=== PATIENT | female | born 1975 | race Caucasian/White ===

== ENCOUNTER 2022-10-27 15:56 | Emergency (ER) | payer MEDICAID, SELFPAY ==
[2022-10-27] VITALS (24 sets, daily range): BP systolic 105–158; BP diastolic 57–80; PULSE 45–70; RESP 16–25; TEMP 36.2–36.6; O2SAT 94–100
--- NOTE | 2022-10-27 16:17 | W.ED.GENAD ---
Discharge Plan Disposition Patient Disposition: Transfer-Acute Inpatient Care Specific Acute Inpt Facility: Other Condition: Stable Discharge Details Clinical Impression: Chest pain, Piyush-Danlos syndrome, Elevated troponin, History of aortic dissection Primary Care Provider: Unknown,Unknown ED Provider: Claudia Elise Home Meds and New Rx's Prescriptions: No Action lorazepam 0.5 mg Tablet 0.5 mg PO TID PRN metoprolol succinate 25 mg Tablet Extended Release 24 Hr PO BID Discharge Data Discharge Date/Time-TO BE ENTERED AT DEPARTURE: 10/28/22 04:16 Medical Decision Making <Landon Holbrook NP - Last Filed: 10/30/22 11:04> 1612- Patient presenting to the emergency department for chief complaint of abdominal pain nausea vomiting diarrhea. I attempted to see patient in the room but she was on the phone and didn't alter my presence after appropriate introduction. Patient continued to speak on the phone and did not seem to be in acute distress. Inform nursing staff due to high capacity and multiple patients waiting longer to have patient wait in the waiting room as it did not appear that she had any life threat needing emergency that could not wait given that she did not want to be seen at time of initial assessment. We will continue to monitor patient's condition and assess her when timing capacity is more appropriate. Once patient was moved to a room was able to finally see patient. She states nausea vomiting and diarrhea with some chills that started around noon today. She does states she had a headache earlier this morning that was typical of her migrainous type headaches. Patient denies any chest pain or shortness of breath. Does state history of migraine headaches, dissection(?) and Piyush-Danlos syndrome. Physical exam shows normal cardiac and respiratory exam, tenderness diffusely throughout the abdomen but mostly central but patient is writhing around in pain making it difficult to perform an appropriate exam. Exam is otherwise unremarkable. We will plan on checking patient's labs and CT imaging of the abdomen. Pending results we will give patient antiemetic fluids and small dose of ketorolac given that she states she does not want any narcotic medications. Review of labs patient does have significant leukocytosis with white count of 19.54, neutrophils of 17.41, and low lymphocytes at 1.17. Cbc is otherwise unremarkable. CMP reviewed and shows significant elevated anion gap of 13.7 so we will give an additional liter of fluids, glucose is 152, mag slightly low at 1.7. Patient has negative lipase. Urine does have blood and ketones present but otherwise no signs of infection. Did perform UDS which was only positive for THC. Viral pathogen panel showed negative for COVID flu and RSV. Did review CT imaging and radiologist interpretation that showed mild thickening of the proximal to mid jejunum suggesting enteritis and some small amount of free fluid in the pelvic cul-de-sac with a very minor left ovarian cyst noted. Reassessed patient and she does state history of ovarian cyst but states this feels different. She did state that now she has having significant amount of chest pain and discomfort. Patient stated that she was more focused on her nausea when she got here even though she initially denied chest pain. Discussed with patient risk versus benefit of reimaging her chest given her history of dissection along with additional radiation exposure and contrast but given her history I do feel this is needed given that now she is still stating significant amount of pain and discomfort. Patient is agreeable to further imaging. We will also add on additional troponin and perform EKG. We will treat patient's pain with acetaminophen again due to her not wanting any narcotic medications. Reviewed CTA imaging and no signs of dissection and scan is otherwise unremarkable except for previously noted enteritis. Reassessed patient and patient continuing to endorse pain and states it feels like an elephant is sitting on her chest. Did asked patient about any stimulants or cocaine use which she denies both. We will give patient small amount of lorazepam, nitro, and aspirin. She does state this is somewhat similar to when she had a dissection in the past but I reassured her that her scan at this time is negative. We will continue to monitor with repeat Trope and EKG. Imaging Data Radiologic Study: Imaging: CT Scan Radiologist's impression: Exam: CT Abdomen And Pelvis With Contrast Exam date and time: 10/27/2022 6:14 PM Age: 47 years old Clinical indication: Other: Abdominal pain nausea vomiting TECHNIQUE: Imaging protocol: Computed tomography of the abdomen and pelvis with contrast. Contrast material: OMNIPAQUE 350; Contrast volume: 70 ml; Contrast route: INTRAVENOUS (IV); COMPARISON: No relevant prior studies available. FINDINGS: Lungs: Lung bases are clear. Pleural spaces: No pleural effusion. Heart: Normal heart size. No pericardial effusion. No coronary artery atherosclerotic calcium visible. Liver: The liver is normal in size, contour and attenuation. Gallbladder and bile ducts: Normal. No calcified stones. No ductal dilation. Pancreas: Normal. No ductal dilation. Spleen: The spleen is normal in size, contour and attenuation. Adrenal glands: The adrenal glands are normal in size and contour bilaterally. Kidneys and ureters: The kidneys bilaterally are unremarkable. Normal attenutation. No hydronephrosis. No calculi. Stomach and bowel: Gastric morphology is unremarkable. No edema. No gastric outlet obstruction. Small bowel loops with some features of wall thickening in the proximal to mid jejunum. Maximal wall thickness of approximately 10 mm. See series 4, image 38. This suggests an enteritis type process. There is no pneumatosis intestinalis. No distinct masslike changes. No obstructive features. Large bowel without acute disease. No edema. There is moderate formed feces throughout the colon. Appendix: Surgical clips at the cecum suggesting a previous appendectomy. Intraperitoneal space: Minor free fluid in the pelvic cul-de-sac with nonspecific appearance. This could be physiologic and gynecologic in nature. Vasculature: Unremarkable. No abdominal aortic aneurysm. Lymph nodes: Unremarkable. No enlarged lymph nodes. Urinary bladder: Urinary bladder is unremarkable in appearance. No wall thickening. No intravesicular calculi. No intravesicular gas. Reproductive: The uterus and adnexa are unremarkable in appearance. There are no dominant adnexal cysts or masslike features. A small cyst of the left ovary with nonspecific appearance is noted measuring approximally 14 x 10 mm. Series 4, image 57. There are no inflammatory features. No uterine mass evident. Bones/joints: Lower thoracic and lumbar spine are unremarkable. No acute features. Soft tissues: Unremarkable. IMPRESSION: 1. Mild wall thickening of the proximal to mid jejunum suggesting an enteritis type process. No mechanical obstruction. 2. Minor free fluid in the pelvic cul-de-sac is likely physiologic in nature and related to gynecologic processes. A minor nonspecific left ovarian cyst is noted measuring 14 x 10 mm. <Claudia Elise DO - Last Filed: 10/29/22 06:06> 1612- Patient presenting to the emergency department for chief complaint of abdominal pain nausea vomiting diarrhea. I attempted to see patient in the room but she was on the phone and didn't alter my presence after appropriate introduction. Patient continued to speak on the phone and did not seem to be in acute distress. Inform nursing staff due to high capacity and multiple patients waiting longer to have patient wait in the waiting room as it did not appear that she had any life threat needing emergency that could not wait given that she did not want to be seen at time of initial assessment. We will continue to monitor patient's condition and assess her when timing capacity is more appropriate. Once patient was moved to a room was able to finally see patient. She states nausea vomiting and diarrhea with some chills that started around noon today. She does states she had a headache earlier this morning that was typical of her migrainous type headaches. Patient denies any chest pain or shortness of breath. Does state history of migraine headaches, dissection(?) and Piyush-Danlos syndrome. Physical exam shows normal cardiac and respiratory exam, tenderness diffusely throughout the abdomen but mostly central but patient is writhing around in pain making it difficult to perform an appropriate exam. Exam is otherwise unremarkable. We will plan on checking patient's labs and CT imaging of the abdomen. Pending results we will give patient antiemetic fluids and small dose of ketorolac given that she states she does not want any narcotic medications. Review of labs patient does have significant leukocytosis with white count of 19.54, neutrophils of 17.41, and low lymphocytes at 1.17. Cbc is otherwise unremarkable. CMP reviewed and shows significant elevated anion gap of 13.7 so we will give an additional liter of fluids, glucose is 152, mag slightly low at 1.7. Patient has negative lipase. Urine does have blood and ketones present but otherwise no signs of infection. Did perform UDS which was only positive for THC. Viral pathogen panel showed negative for COVID flu and RSV. Did review CT imaging and radiologist interpretation that showed mild thickening of the proximal to mid jejunum suggesting enteritis and some small amount of free fluid in the pelvic cul-de-sac with a very minor left ovarian cyst noted. Reassessed patient and she does state history of ovarian cyst but states this feels different. She did state that now she has having significant amount of chest pain and discomfort. Patient stated that she was more focused on her nausea when she got here even though she initially denied chest pain. Discussed with patient risk versus benefit of reimaging her chest given her history of dissection along with additional radiation exposure and contrast but given her history I do feel this is needed given that now she is still stating significant amount of pain and discomfort. Patient is agreeable to further imaging. We will also add on additional troponin and perform EKG. We will treat patient's pain with acetaminophen again due to her not wanting any narcotic medications. Reviewed CTA imaging and no signs of dissection and scan is otherwise unremarkable except for previously noted enteritis. Reassessed patient and patient continuing to endorse pain and states it feels like an elephant is sitting on her chest. Did asked patient about any stimulants or cocaine use which she denies both. We will give patient small amount of lorazepam, nitro, and aspirin. She does state this is somewhat similar to when she had a dissection in the past but I reassured her that her scan at this time is negative. We will continue to monitor with repeat Trope and EKG. Dr. Elise 0261 --please see Demetri Holbrook's note for initial presentation, exam and plan. Case endorsed to follow-up with [facility] cardiology regarding recommendations of elevated troponin. 0030 --discussed with [facility] cardiology --considering patient's history of Piyush-Danlos, have to consider scad which is spontaneous coronary artery dissection even though she has a negative CT scan. Her symptoms could be consistent with viral gastroenteritis however recommend transfer to tertiary facility for coronary catheterization. [facility] has no capacity to do this. We will contact other facilities. No recommendations for heparin at this time. 0200 --no bed availability at [facility], [facility], [place], [facility], [facility] and no availability. Discussed with [facility] in [facility] and they may have availability tomorrow afternoon. Discussed with child caregiver private home Dr. Youngblood who has accepted patient for transfer but recommends that [facility] call the [facility] transfer center after 9 AM tomorrow to confirm bed availability and to give any updates. Dr. Youngblood does not recommend heparin treatment at this time. A repeat troponin just resulted and has doubled now 453. Discussed again with [facility] and they make no acute recommendations or no change in urgency. We will call other [facility] to see if they can take her sooner. 0220 --patient noted to be hypotensive with blood pressure 83/53. She endorses her chest pain is improved. We will give a normal saline bolus. She states she had an aortic dissection in April or May for which she was seen at [facility] and was treated nonoperatively. Case discussed with [facility] and they have accepted her for transfer -- accepting physician Dr. Horton. 0330 -- BP improving 101/53. Pt appears comfortable. After multiple attempts to secure transport, able to confirm with [facility] and they will transfer patient. No air transport available secondary to weather. [facility] and [facility] ground unavailable. Medical Records Medical records reviewed: Yes I reviewed the patient's medical records. Imaging Data Radiologic Study: Radiologist's impression: CT Abdomen And Pelvis With Contrast Exam date and time: 10/27/2022 6:14 PM Age: 47 years old Clinical indication: Other: Abdominal pain nausea vomiting TECHNIQUE: Imaging protocol: Computed tomography of the abdomen and pelvis with contrast. Contrast material: OMNIPAQUE 350; Contrast volume: 70 ml; Contrast route: INTRAVENOUS (IV); COMPARISON: No relevant prior studies available. FINDINGS: Lungs: Lung bases are clear. Pleural spaces: No pleural effusion. Heart: Normal heart size. No pericardial effusion. No coronary artery atherosclerotic calcium visible. Liver: The liver is normal in size, contour and attenuation. Gallbladder and bile ducts: Normal. No calcified stones. No ductal dilation. Pancreas: Normal. No ductal dilation. Spleen: The spleen is normal in size, contour and attenuation. Adrenal glands: The adrenal glands are normal in size and contour bilaterally. Kidneys and ureters: The kidneys bilaterally are unremarkable. Normal attenutation. No hydronephrosis. No calculi. Stomach and bowel: Gastric morphology is unremarkable. No edema. No gastric outlet obstruction. Small bowel loops with some features of wall thickening in the proximal to mid jejunum. Maximal wall thickness of approximately 10 mm. See series 4, image 38. This suggests an enteritis type process. There is no pneumatosis intestinalis. No distinct masslike changes. No obstructive features. Large bowel without acute disease. No edema. There is moderate formed feces throughout the colon. Appendix: Surgical clips at the cecum suggesting a previous appendectomy. Intraperitoneal space: Minor free fluid in the pelvic cul-de-sac with nonspecific appearance. This could be physiologic and gynecologic in nature. Vasculature: Unremarkable. No abdominal aortic aneurysm. Lymph nodes: Unremarkable. No enlarged lymph nodes. Urinary bladder: Urinary bladder is unremarkable in appearance. No wall thickening. No intravesicular calculi. No intravesicular gas. Reproductive: The uterus and adnexa are unremarkable in appearance. There are no dominant adnexal cysts or masslike features. A small cyst of the left ovary with nonspecific appearance is noted measuring approximally 14 x 10 mm. Series 4, image 57. There are no inflammatory features. No uterine mass evident. Bones/joints: Lower thoracic and lumbar spine are unremarkable. No acute features. Soft tissues: Unremarkable. IMPRESSION: 1. Mild wall thickening of the proximal to mid jejunum suggesting an enteritis type process. No mechanical obstruction. 2. Minor free fluid in the pelvic cul-de-sac is likely physiologic in nature and related to gynecologic processes. A minor nonspecific left ovarian cyst is noted measuring 14 x 10 mm. CTA Chest With Contrast CTA Abdomen and Pelvis With Contrast Exam date and time: 10/27/2022 8:00 PM Age: 47 years old Clinical indication: Other: Chest pain, history of dissection; Abdominal pain TECHNIQUE: Imaging protocol: Computed tomographic angiography of the chest with contrast. Computed tomographic angiography of the abdomen and pelvis with contrast. 3D rendering (Not supervised by radiologist): MIP and/or 3D reconstructed images were created by the technologist. Contrast material: OMNIPAQUE 350; Contrast volume: 100 ml; Contrast route: INTRAVENOUS (IV);? COMPARISON: CT ABDOMEN PELVIS W 10/27/2022 6:14 PM FINDINGS: VASCULATURE: Pulmonary arteries: Pulmonary arterial opacification is of good technical quality. No embolism. Aorta: Thoracic aorta is normal in course and caliber. No aneurysm. No dissection. Abdominal aorta with minor atherosclerotic calcium. No aneurysm. No dissection. Celiac trunk and mesenteric arteries: Celiac artery is widely patent. Superior mesenteric arteries widely patent. Renal arteries: Right renal artery is widely patent. Left renal arteries widely patent. Right iliac arteries: Right iliac arteries widely patent. Left iliac arteries: Left iliac arteries widely patent. Veins: Portal vein is patent. Splenic vein is patent. CHEST: Lungs: Lungs are clear bilaterally. No consolidation. No edema. Pleural spaces: No pleural effusion. No pneumothorax. Heart: Normal heart size. No pericardial effusion. No coronary artery atherosclerotic calcium is visible. ABDOMEN AND PELVIS: Liver: No mass. Gallbladder and bile ducts: Unremarkable. No calcified stones. No ductal dilation. Pancreas: Unremarkable. No mass. No ductal dilation. Spleen: Unremarkable. No splenomegaly. Adrenal glands: Unremarkable. No mass. Kidneys and ureters: Unremarkable. No solid mass. No hydronephrosis. Stomach and bowel: Minor bowel wall thickening of the mid jejunum suggesting an area of enteritis. No ischemic changes. No pneumatosis intestinalis. No inflammatory changes of adjacent mesentery. Gastric contour morphology are unremarkable. Large bowel loops are unremarkable. Appendix: Previous appendectomy. Intraperitoneal space: No free fluid or free air. Urinary bladder: Urinary bladder is unremarkable in appearance. No wall thickening. No intravesicular calculi. No intravesicular gas. Reproductive: The uterus and adnexa are unremarkable in appearance. There are no dominant adnexal cysts or masslike features. There are no inflammatory features. No uterine mass evident. Lymph nodes: Unremarkable. No enlarged lymph nodes. Bones/joints: Thoracic skeletal structures are unremarkable. No acute features. Minor thoracic spine degenerative change. Soft tissues: Chest wall soft tissues are unremarkable. IMPRESSION: 1. Thoracic and abdominal aorta are unremarkable. No aneurysm or dissection. 2. Mesenteric vessels opacify and show no features of occlusion or stenosis. 3. Mid jejunal small bowel loops with mild wall thickening suggesting an enteritis process. 4. Pulmonary artery is unremarkable. 5. Cardiac contour, size, and coronary arteries are unremarkable. Dictated and Authenticated by: Yinka Nolasco MD. Lab Data Lab results reviewed: Yes I reviewed the patient's lab results. Labs: Laboratory Tests Range/Units 10/27/22 10/27/22 10/27/22 17:10 17:10 17:23 WBC (4.4-10.8) 10^3/uL RBC (3.93-5.22) 10^6/uL Hgb (11.2-15.7) g/dL Hct (36.0-46.0) % MCV (80-95) fL MCH (27.0-33.0) pg MCHC (32.0-36.0) % RDW (11.7-14.6) % Plt Count (130-400) 10^3/uL MPV (8.0-11.0) fL Immature Gran % Neutrophils % Lymphocytes % Monocytes % Eosinophils % Basophils % Nucleated RBC % (0.0-0.3) % Absolute Neutrophils (1.2-6.7) 10^3/uL Absolute Lymphocytes (1.2-3.4) 10^3/uL Absolute Monocytes (0.1-0.8) 10^3/uL Absolute Eosinophils (0.0-0.7) 10^3/uL Absolute Basophils (0.0-0.2) 10^3/uL Sodium (136-145) mmol/L 142 Potassium (3.5-5.1) mmol/L 3.7 Chloride (98-107) mmol/L 105 Carbon Dioxide (21.0-32.0) mmol/L 23.3 Anion Gap (3-11) mmol/L 13.7 H BUN (7-18) mg/dL 14 Creatinine (0.55-1.02) mg/dL 0.8 Est GFR (CKD-EPI 2020) (mL/min/1.73m2) 92.54 Glucose (74-106) mg/dL 152 H Calcium (8.5-10.1) mg/dL 9.1 Magnesium (1.8-2.4) mg/dL 1.7 L Total Bilirubin (0.2-1.0) mg/dL 0.5 AST (15-37) U/L 17 ALT (14-59) U/L 19 Alkaline Phosphatase (46-116) U/L 60 Troponin I (<or=60) ng/L Total Protein (6.4-8.2) g/dL 7.2 Albumin (3.4-5.0) g/dL 4.5 Lipase (73-393) U/L Urine Color (Yellow) Yellow Urine Clarity (Clear) Clear Urine pH (5-8) 6.0 Ur Specific [place] (1.005-1.025) 1.025 Urine Protein (Negative) mg/dL Trace H Urine Ketones (Negative) mg/dL 40 H Urine Blood (Negative) Large H Urine Nitrite (Negative) Negative Urine Bilirubin (Negative) Negative Urine Urobilinogen (Up TO 0.2) EU/dL 0.2 Ur Leukocyte Esterase (Negative) Negative Urine RBC (0-2) HPF 5-10 H Urine WBC (0-5) HPF 3-5 Ur Epithelial Cells (Negative) HPF Moderate Urine Crystals (Negative) HPF Negative Urine Bacteria (Negative) HPF Few Urine Casts (Negative) LPF Negative Urine Mucus (Negative) Negative Ur Culture Indicated? No Urine Glucose (Negative) mg/dL Negative Urine Opiates Screen (Negative) Negative Urine Methadone Screen (Negative) Negative Ur Barbiturates Screen (Negative) Negative Ur Tricyclics Screen (Negative) Negative Ur Amphetamines Screen (Negative) Negative U Benzodiazepines Scrn (Negative) Negative Urine Cocaine Screen (Negative) Negative Ur THC Screen (Negative) Positive A COVID-19 Source SARS-CoV-2 (PCR) (Negative) Influenza Type A (PCR) (Negative) Influenza Type B (PCR) (Negative) RSV (PCR) (Negative) Range/Units 10/27/22 10/27/22 10/27/22 17:23 17:23 17:25 WBC (4.4-10.8) 10^3/uL 19.54 H RBC (3.93-5.22) 10^6/uL 4.52 Hgb (11.2-15.7) g/dL 13.5 Hct (36.0-46.0) % 40.7 MCV (80-95) fL 90 MCH (27.0-33.0) pg 29.9 MCHC (32.0-36.0) % 33.2 RDW (11.7-14.6) % 12.7 Plt Count (130-400) 10^3/uL 282 MPV (8.0-11.0) fL 10.9 Immature Gran % 0.4 Neutrophils % 89.1 Lymphocytes % 6.0 Monocytes % 3.8 Eosinophils % 0.2 Basophils % 0.5 Nucleated RBC % (0.0-0.3) % 0.0 Absolute Neutrophils (1.2-6.7) 10^3/uL 17.41 H Absolute Lymphocytes (1.2-3.4) 10^3/uL 1.17 L Absolute Monocytes (0.1-0.8) 10^3/uL 0.74 Absolute Eosinophils (0.0-0.7) 10^3/uL 0.04 Absolute Basophils (0.0-0.2) 10^3/uL 0.10 Sodium (136-145) mmol/L Potassium (3.5-5.1) mmol/L Chloride (98-107) mmol/L Carbon Dioxide (21.0-32.0) mmol/L Anion Gap (3-11) mmol/L BUN (7-18) mg/dL Creatinine (0.55-1.02) mg/dL Est GFR (CKD-EPI 2020) (mL/min/1.73m2) Glucose (74-106) mg/dL Calcium (8.5-10.1) mg/dL Magnesium (1.8-2.4) mg/dL Total Bilirubin (0.2-1.0) mg/dL AST (15-37) U/L ALT (14-59) U/L Alkaline Phosphatase (46-116) U/L Troponin I (<or=60) ng/L Total Protein (6.4-8.2) g/dL Albumin (3.4-5.0) g/dL Lipase (73-393) U/L 71 Urine Color (Yellow) Urine Clarity (Clear) Urine pH (5-8) Ur Specific [place] (1.005-1.025) Urine Protein (Negative) mg/dL Urine Ketones (Negative) mg/dL Urine Blood (Negative) Urine Nitrite (Negative) Urine Bilirubin (Negative) Urine Urobilinogen (Up TO 0.2) EU/dL Ur Leukocyte Esterase (Negative) Urine RBC (0-2) HPF Urine WBC (0-5) HPF Ur Epithelial Cells (Negative) HPF Urine Crystals (Negative) HPF Urine Bacteria (Negative) HPF Urine Casts (Negative) LPF Urine Mucus (Negative) Ur Culture Indicated? Urine Glucose (Negative) mg/dL Urine Opiates Screen (Negative) Urine Methadone Screen (Negative) Ur Barbiturates Screen (Negative) Ur Tricyclics Screen (Negative) Ur Amphetamines Screen (Negative) U Benzodiazepines Scrn (Negative) Urine Cocaine Screen (Negative) Ur THC Screen (Negative) COVID-19 Source Nasopharynx SARS-CoV-2 (PCR) (Negative) Negative Influenza Type A (PCR) (Negative) Negative Influenza Type B (PCR) (Negative) Negative RSV (PCR) (Negative) Negative Range/Units 10/27/22 10/27/22 10/28/22 19:28 22:25 01:26 WBC (4.4-10.8) 10^3/uL RBC (3.93-5.22) 10^6/uL Hgb (11.2-15.7) g/dL Hct (36.0-46.0) % MCV (80-95) fL MCH (27.0-33.0) pg MCHC (32.0-36.0) % RDW (11.7-14.6) % Plt Count (130-400) 10^3/uL MPV (8.0-11.0) fL Immature Gran % Neutrophils % Lymphocytes % Monocytes % Eosinophils % Basophils % Nucleated RBC % (0.0-0.3) % Absolute Neutrophils (1.2-6.7) 10^3/uL Absolute Lymphocytes (1.2-3.4) 10^3/uL Absolute Monocytes (0.1-0.8) 10^3/uL Absolute Eosinophils (0.0-0.7) 10^3/uL Absolute Basophils (0.0-0.2) 10^3/uL Sodium (136-145) mmol/L Potassium (3.5-5.1) mmol/L Chloride (98-107) mmol/L Carbon Dioxide (21.0-32.0) mmol/L Anion Gap (3-11) mmol/L BUN (7-18) mg/dL Creatinine (0.55-1.02) mg/dL Est GFR (CKD-EPI 2020) (mL/min/1.73m2) Glucose (74-106) mg/dL Calcium (8.5-10.1) mg/dL Magnesium (1.8-2.4) mg/dL Total Bilirubin (0.2-1.0) mg/dL AST (15-37) U/L ALT (14-59) U/L Alkaline Phosphatase (46-116) U/L Troponin I (<or=60) ng/L 246 H* 283 H* 453 H* Total Protein (6.4-8.2) g/dL Albumin (3.4-5.0) g/dL Lipase (73-393) U/L Urine Color (Yellow) Urine Clarity (Clear) Urine pH (5-8) Ur Specific [place] (1.005-1.025) Urine Protein (Negative) mg/dL Urine Ketones (Negative) mg/dL Urine Blood (Negative) Urine Nitrite (Negative) Urine Bilirubin (Negative) Urine Urobilinogen (Up TO 0.2) EU/dL Ur Leukocyte Esterase (Negative) Urine RBC (0-2) HPF Urine WBC (0-5) HPF Ur Epithelial Cells (Negative) HPF Urine Crystals (Negative) HPF Urine Bacteria (Negative) HPF Urine Casts (Negative) LPF Urine Mucus (Negative) Ur Culture Indicated? Urine Glucose (Negative) mg/dL Urine Opiates Screen (Negative) Urine Methadone Screen (Negative) Ur Barbiturates Screen (Negative) Ur Tricyclics Screen (Negative) Ur Amphetamines Screen (Negative) U Benzodiazepines Scrn (Negative) Urine Cocaine Screen (Negative) Ur THC Screen (Negative) COVID-19 Source SARS-CoV-2 (PCR) (Negative) Influenza Type A (PCR) (Negative) Influenza Type B (PCR) (Negative) RSV (PCR) (Negative) ECG Data Attestation: I personally reviewed and interpreted this ECG (s) as follows: Interpretation: #1 -- rate of 60, sinus, normal axis, no stemi. #2 -- rate of 58, sinus, normal axis, no stemi. #3 -- rate of 60, sinus, normal axis, qt 462, no stemi. HPI <Landon Holbrook NP - Last Filed: 10/30/22 11:04> General Mode of arrival: EMS. Date/Time Provider Initiated Documentation: 10/27/22 16:01. Information obtained by: patient, EMS and RN notes reviewed. History of Present Illness 47 year old F presents to the emergency department with the chief complaint of Abdominal pain nausea vomiting diarrhea, described as moderate, with intensity rated at 9. Quality is described as sharp, and is localized to the abdomen. Patient reports no radiation. Patient started experiencing this hour(s) (4) and it has been constant. No relieving factors improve symptom(s), No exacerbating factors reported . Patient did receive the following treatments prior to arrival, none Related Data Home Medications Medication Instructions Recorded Confirmed lorazepam 0.5 mg tablet 0.5 mg PO TID PRN 10/27/22 10/27/22 metoprolol succinate 25 mg mg PO BID 10/27/22 tablet,extended release 24 hr Allergies Allergy/AdvReac Type Severity Reaction Status Date / Time amoxicillin Allergy Severe Other (See Unverified 10/27/22 16:03 Comment) acetaminophen [From Percocet] Allergy Intermediate Hives Unverified 10/27/22 16:03 oxycodone [From Percocet] Allergy Intermediate Hives Unverified 10/27/22 16:03 Penicillins Allergy Intermediate Diarrhea Unverified 10/27/22 16:03 sulfamethoxazole Allergy Intermediate Hives Unverified 10/27/22 16:03 [From Bactrim] trimethoprim [From Bactrim] Allergy Intermediate Hives Unverified 10/27/22 16:03 General Stated Complaint: Abd Prob SALIMA: 3 Review of Systems <Landon Holbrook NP - Last Filed: 10/30/22 11:04> Constitutional Constitutional: Denies chills, Denies fever(s) and Reports poor appetite Cardiovascular Cardiovascular: Denies chest pain and Denies dyspnea Respiratory Respiratory: Denies cough and Denies dyspnea Gastrointestinal Gastrointestinal: Reports as per HPI, Reports abdominal pain, Denies melena, Denies change in bowel habits, Denies constipation, Denies diarrhea, Reports nausea and Reports vomiting Genitourinary Genitourinary: Denies hematuria, Denies urinary incontinence, Denies urinary hesitancy and Denies urinary urgency Integumentary/Breasts Skin/Breast: Denies rash PFSH <Landon Holbrook NP - Last Filed: 10/30/22 11:04> All Active Problems (Updated 10/28/22 @ 02:27 by Claudia Elise DO) Chest pain (Acute) Piyush-Danlos syndrome (Acute) Elevated troponin (Acute) History of aortic dissection (Acute) Piyush-Danlos syndrome (Acute) Medical History Migraine headache Social History Smoking/Tobacco Use Status: Never Smoking risk assessment performed?: Yes Alcohol Intake: never Drug use: Occasionally Substance use type: marijuana Do you feel safe at home: Yes Do you feel safe in your relationship?: Yes Exam <Landon Holbrook NP - Last Filed: 10/30/22 11:04> Const General: cooperative, anxious, disheveled and ill appearing acutely Nutritional Appearance: thin Orientation: alert, awake and oriented x3 Resp Effort & Inspection: normal respiratory effort and able to speak in complete sentences Auscultation: clear to auscultation bilaterally Cardio Rate: regular rate Rhythm: regular rhythm Heart Sounds: S1 normal and S2 normal GI Palpation: soft, not firm, no guarding, no masses, no pulsatile masses, not rigid, no splenomegaly and tender in the epigastrum and periumbilically Auscultation: normal bowel sounds Back/Spine/Pelvis Back: no CVA tenderness Neuro General: patient alert, patient awake, patient oriented x3, gait normal and moves all extremities Course <Landon Holbrook NP - Last Filed: 10/30/22 11:04> Vital Signs Vital signs: Vital Signs Temperature 36.2 C L 10/27/22 15:57 Pulse 61 10/27/22 15:57 Respiratory Rate 20 10/27/22 15:57 Blood Pressure 129/78 10/27/22 15:57 Pulse Oximetry 100 10/27/22 15:57 Temperature 36.2 C L 10/27/22 15:57 Temperature Source Temporal Artery Scan 10/27/22 15:57 Pulse 61 10/27/22 15:57 Respiratory Rate 20 10/27/22 15:57 Respiratory Effort Non-Labored 10/27/22 15:59 Blood Pressure 129/78 10/27/22 15:57 Blood Pressure Position Sitting 10/27/22 15:57 Pulse Oximetry 100 10/27/22 15:57 Oxygen Delivery Method Room Air 10/27/22 15:57 Oxygen Flow Rate 0 10/27/22 15:57 Pain Level 10 10/27/22 15:59 <Claudia Elise DO - Last Filed: 10/29/22 06:06> Critical Care Time Critical Care Time: Yes Total Critical Care Time: 60 Attestation: I spent 60 minutes of critical care time with this patient. This does not include time spent on separately reported billable procedures. Sign Out <Landon Holbrook NP - Last Filed: 10/30/22 11:04> Sign Out Data: Sign Out Comment: Patient pending cardiology consult and admission for [facility] given patient has nausea vomiting diarrhea with negative scans but elevated troponin. Patient with history of Piyush-Danlos and some sort of dissection. Last updated by Landon Holbrook NP at 10/27/22 23:36
[2022-10-27 17:30] LABS: Abs Immature Grans 0.08 10^3/uL (0.0-0.06); Absolute Eosinophil Count 0.04 10^3/uL (0.0-0.7); Basophils % 0.5; Eosinophils % 0.2; HCT 40.7 % (36.0-46.0); HGB 13.5 g/dL (11.2-15.7); Immature Grans % 0.4; MCH 29.9 pg (27.0-33.0); MCHC 33.2 % (32.0-36.0); MCV 90 fL (80-95); MPV 10.9 fL (8.0-11.0); Monocytes % 3.8; Neutrophils % 89.1; Platelet Count 282 10^3/uL (130-400); RBC 4.52 10^6/uL (3.93-5.22); RDW 12.7 % (11.7-14.6); WBC 19.54 10^3/uL (4.4-10.8)
[2022-10-27 17:31] LABS: Absolute Lymphocyte Count 1.17 10^3/uL (1.2-3.4); Absolute Monocyte Count 0.74 10^3/uL (0.1-0.8); Absolute Neutrophil Count 17.41 10^3/uL (1.2-6.7)
[2022-10-27 17:34] LABS: Bilirubin Negative (Negative); Blood Large (Negative); Clarity Clear (Clear); Glucose Negative (Negative); Ketones 40 mg/dL (Negative); Leukocyte Esterase Negative (Negative); Nitrite Negative (Negative); Specific Gravity 1.025 (1.005-1.025); Urobilinogen 0.2 EU/dL (Up TO 0.2)
[2022-10-27] MEDS: Ondansetron 4 MG/2 ML VIAL IVP (17:34)
[2022-10-27] MEDS: Ketorolac 15 MG/ML VIAL IVP (17:34)
[2022-10-27 17:37] LABS: Bacteria Few HPF (Negative); C & S Indicated? No; Casts Negative LPF (Negative); Crystals Negative HPF (Negative); Epithelial Cells Moderate HPF (Negative); Mucus Negative (Negative)
[2022-10-27 17:45] LABS: ALT 19 U/L (14-59); AST 17 U/L (15-37); Albumin 4.5 g/dL (3.4-5.0); Alkaline Phosphatase 60 U/L (46-116); Anion Gap 13.7 mmol/L (3-11); BUN 14 mg/dL (7-18); Bilirubin, Total 0.5 mg/dL (0.2-1.0); CO2 23.3 mmol/L (21.0-32.0); CREATININE 0.8 mg/dL (0.55-1.02); Calcium 9.1 mg/dL (8.5-10.1); Chloride 105 mmol/L (98-107); Estimated GFR 92.54 (mL/min/1.73m2); Glucose 152 mg/dL (74-106); Magnesium 1.7 mg/dL (1.8-2.4); Potassium 3.7 mmol/L (3.5-5.1); Sodium 142 mmol/L (136-145); Total Protein 7.2 g/dL (6.4-8.2)
[2022-10-27 17:55] LABS: *AMPHETAMINES SCREEN URINE Negative (Negative); *BARBITURATES SCREEN URINE Negative (Negative); *BENZODIAZEPINES SCREEN URINE Negative (Negative); Cannabinoids THC Positive (Negative); Cocaine Screen,Urine Negative (Negative); METHADONE URINE SCREEN Negative (Negative); OPIATES URINE SCREEN Negative (Negative)
[2022-10-27 17:58] LABS: Tricyclic Antidepressants Negative (Negative)
[2022-10-27] MEDS: Normal Saline 1,000 ML 1000 ML IV ×2 (18:02→21:43)
[2022-10-27 18:07] LABS: COVID-19 PCR Negative (Negative); Influenza A PCR Negative (Negative); Influenza B PCR Negative (Negative); RSV PCR Negative (Negative)
--- NOTE | 2022-10-27 18:07 | NUR.NOTE ---
Nursing Note: pt brought to ed from , pt was rocking back and forth, c/o NVD all day, the pt states I have a lot of cardiac problems pt denies using any drugs, stating she takes Tylenol for pain, pt states she currently has her menses. pt moaning, help me help me IV established
[2022-10-27 18:09] LABS: Source Nasopharynx
[2022-10-27] MEDS: Normal Saline - Diluent 50 ML VIAL IJ ×2 (18:19→20:07)
[2022-10-27] MEDS: Omnipaque 350 MG/ML 100 ML BTL 70 ML IJ ×2 (18:20→20:08)
[2022-10-27] MEDS: Normal Saline Flush 10 ML SYR IVP (18:24)
--- NOTE | 2022-10-27 18:43 | NUR.NOTE ---
Addendum entered by Carmen Rosa 10/27/22 18:43: Original Note: Nursing Note: Per patient can give mother Beatrice Ortega information about this ED visit.
--- NOTE | 2022-10-27 18:46 | DI.VRAD_ITS ---
PROCEDURE INFORMATION: Exam: CT Abdomen And Pelvis With Contrast Exam date and time: 10/27/2022 6:14 PM Age: 47 years old Clinical indication: Other: Abdominal pain nausea vomiting TECHNIQUE: Imaging protocol: Computed tomography of the abdomen and pelvis with contrast. Contrast material: OMNIPAQUE 350; Contrast volume: 70 ml; Contrast route: INTRAVENOUS (IV); COMPARISON: No relevant prior studies available. FINDINGS: Lungs: Lung bases are clear. Pleural spaces: No pleural effusion. Heart: Normal heart size. No pericardial effusion. No coronary artery atherosclerotic calcium visible. Liver: The liver is normal in size, contour and attenuation. Gallbladder and bile ducts: Normal. No calcified stones. No ductal dilation. Pancreas: Normal. No ductal dilation. Spleen: The spleen is normal in size, contour and attenuation. Adrenal glands: The adrenal glands are normal in size and contour bilaterally. Kidneys and ureters: The kidneys bilaterally are unremarkable. Normal attenutation. No hydronephrosis. No calculi. Stomach and bowel: Gastric morphology is unremarkable. No edema. No gastric outlet obstruction. Small bowel loops with some features of wall thickening in the proximal to mid jejunum. Maximal wall thickness of approximately 10 mm. See series 4, image 38. This suggests an enteritis type process. There is no pneumatosis intestinalis. No distinct masslike changes. No obstructive features. Large bowel without acute disease. No edema. There is moderate formed feces throughout the colon. Appendix: Surgical clips at the cecum suggesting a previous appendectomy. Intraperitoneal space: Minor free fluid in the pelvic cul-de-sac with nonspecific appearance. This could be physiologic and gynecologic in nature. Vasculature: Unremarkable. No abdominal aortic aneurysm. Lymph nodes: Unremarkable. No enlarged lymph nodes. Urinary bladder: Urinary bladder is unremarkable in appearance. No wall thickening. No intravesicular calculi. No intravesicular gas. Reproductive: The uterus and adnexa are unremarkable in appearance. There are no dominant adnexal cysts or masslike features. A small cyst of the left ovary with nonspecific appearance is noted measuring approximally 14 x 10 mm. Series 4, image 57. There are no inflammatory features. No uterine mass evident. Bones/joints: Lower thoracic and lumbar spine are unremarkable. No acute features. Soft tissues: Unremarkable. IMPRESSION: 1. Mild wall thickening of the proximal to mid jejunum suggesting an enteritis type process. No mechanical obstruction. 2. Minor free fluid in the pelvic cul-de-sac is likely physiologic in nature and related to gynecologic processes. A minor nonspecific left ovarian cyst is noted measuring 14 x 10 mm. Dictated and Authenticated by: Yinka Nolasco MD. Ordering:ARNIE Navarrete MD
--- NOTE | 2022-10-27 18:59 | NUR.NOTE ---
Nursing Note: pt loudly moaning, states her pain is worse and the nausea has returned, speaking with the pt
--- NOTE | 2022-10-27 19:00 | DI.CT_ITS ---
Exam(s) CT ABDOMEN PELVIS W CT THORAX ABD/PEL CTA EXAM: CT THORAX ABD/PEL CTA CLINICAL HISTORY: Chest pain, history of dissection. TECHNIQUE: Imaging Protocol: Axial CT angiography was performed with multi-slice acquisition and mu lti-planar and/or 3D reconstructions. CONTRAST MATERIAL: Intravenous: Omnipaque 350 Contrast volume:100 ml COMPARISON: CT CT ABDOMEN PELVIS W from 10/27/2022 FINDINGS: CHEST: Pulmonary Arteries: No evidence of filling defect to suggest pulmonary emboli. Tracheobronchial tree: Patent where visualized. Mediastinum and Chantal: No dominant adenopathy or fluid collection. Pulmonary parenchyma: No consolidation or dominant measurable mass. No architectural distortion. Pleura: No effusion or pneumothorax. Heart: The heart is not dilated. No coronary artery calcifications are seen. Aorta: Thoracic aorta non-dilated. Minimal atherosclerotic changes. Bones: Normal. Tubes, Catheters, and Lines: None ABDOMEN: Liver: Normal density. No measurable mass. Portal, Superior Mesenteric, and Splenic Veins: Unremarkable. Gallbladder and Biliary Tract: No radiodense calculus or dilation. Pancreas: Normal density, no abnormal calcifications or inflammatory process. Spleen: Normal. Adrenals: No masses seen. Kidneys: Normal size, contour and axis. No radiodense stones or obstructive uropathy. No masses seen. Abdominal Aorta: Abdominal portion non-dilated. Bowel: Mild wall thickening loops of jejunum on the left side of the abdomen with some increased alcides rial enhancement consistent with enteritis. No obstruction . Status post appendectomy Peritoneal Cavity: No ascites, collection or mesenteric inflammatory response. Lymph Nodes: Within normal limits. Bones: Unremarkable. Soft Tissues: Unremarkable. PELVIS: Bladder: Symmetric distention, no gross wall thickening. Reproductive Organs: Unremarkable as visualized. Lymph Nodes: Within normal limits. Bones: Within normal limits. IMPRESSION: 1. Chest: No evidence of pulmonary embolism or aortic dissection.. 2. Mild wall thickening and enhancement loops of jejunum consistent with enteritis. Abdominal vascul ature patent throughout. RADIATION DOSE DELIVERED: 601.42mGy.cm Total DLP DATA REPOSITORY: All CT scans at this facility are submitted to the National Radiology Data Registry (NRDR) Dose Index Registry (DIR) with the [employer] (ACR). RADIATION OPTIMIZATION: All CT scans at this facility use at least one of these dose optimization te chniques: automated exposure control; mA and/or kV adjustment per patient size (includes targeted exa ms where dose is matched to clinical indication); or iterative reconstruction.
[2022-10-27] MEDS: ACETAMINOPHEN 1,000 MG/100 ML BTL 400 MG IVPB (19:19)
[2022-10-27] MEDS: Normal Saline 50 ML (19:20)
[2022-10-27] MEDS: Prochlorperazine 10 MG/2 ML VIAL 5 MG IVP (19:21)
[2022-10-27 19:29] LABS: Lipase 71 U/L (73-393)
--- NOTE | 2022-10-27 19:45 | RT.EKG_ITS ---
APPROVED REPORT Exam: Resting ECG Reason for Exam: Elevated Troponin Patient Location: E HR:60 bpm ECG Measurements Heart Rate 60 AXIS WV 131 P 52 QRSd 107 QRS 78 QT 471 T 45 QTc 470 Conclusion Sinus rhythm...normal P axis, V-rate 60- 99. Sinus. Normal axis. No STEMI. I have reviewed and interpreted ECG and agree with software generated interpretation.
[2022-10-27 19:54] LABS: Troponin I 246 ng/L (<or=60)
--- NOTE | 2022-10-27 20:26 | DI.VRAD_ITS ---
PROCEDURE INFORMATION: Exam: CTA Chest With Contrast CTA Abdomen and Pelvis With Contrast Exam date and time: 10/27/2022 8:00 PM Age: 47 years old Clinical indication: Other: Chest pain, history of dissection; Abdominal pain TECHNIQUE: Imaging protocol: Computed tomographic angiography of the chest with contrast. Computed tomographic angiography of the abdomen and pelvis with contrast. 3D rendering (Not supervised by radiologist): MIP and/or 3D reconstructed images were created by the technologist. Contrast material: OMNIPAQUE 350; Contrast volume: 100 ml; Contrast route: INTRAVENOUS (IV); COMPARISON: CT ABDOMEN PELVIS W 10/27/2022 6:14 PM FINDINGS: VASCULATURE: Pulmonary arteries: Pulmonary arterial opacification is of good technical quality. No embolism. Aorta: Thoracic aorta is normal in course and caliber. No aneurysm. No dissection. Abdominal aorta with minor atherosclerotic calcium. No aneurysm. No dissection. Celiac trunk and mesenteric arteries: Celiac artery is widely patent. Superior mesenteric arteries widely patent. Renal arteries: Right renal artery is widely patent. Left renal arteries widely patent. Right iliac arteries: Right iliac arteries widely patent. Left iliac arteries: Left iliac arteries widely patent. Veins: Portal vein is patent. Splenic vein is patent. CHEST: Lungs: Lungs are clear bilaterally. No consolidation. No edema. Pleural spaces: No pleural effusion. No pneumothorax. Heart: Normal heart size. No pericardial effusion. No coronary artery atherosclerotic calcium is visible. ABDOMEN AND PELVIS: Liver: No mass. Gallbladder and bile ducts: Unremarkable. No calcified stones. No ductal dilation. Pancreas: Unremarkable. No mass. No ductal dilation. Spleen: Unremarkable. No splenomegaly. Adrenal glands: Unremarkable. No mass. Kidneys and ureters: Unremarkable. No solid mass. No hydronephrosis. Stomach and bowel: Minor bowel wall thickening of the mid jejunum suggesting an area of enteritis. No ischemic changes. No pneumatosis intestinalis. No inflammatory changes of adjacent mesentery. Gastric contour morphology are unremarkable. Large bowel loops are unremarkable. Appendix: Previous appendectomy. Intraperitoneal space: No free fluid or free air. Urinary bladder: Urinary bladder is unremarkable in appearance. No wall thickening. No intravesicular calculi. No intravesicular gas. Reproductive: The uterus and adnexa are unremarkable in appearance. There are no dominant adnexal cysts or masslike features. There are no inflammatory features. No uterine mass evident. Lymph nodes: Unremarkable. No enlarged lymph nodes. Bones/joints: Thoracic skeletal structures are unremarkable. No acute features. Minor thoracic spine degenerative change. Soft tissues: Chest wall soft tissues are unremarkable. IMPRESSION: 1. Thoracic and abdominal aorta are unremarkable. No aneurysm or dissection. 2. Mesenteric vessels opacify and show no features of occlusion or stenosis. 3. Mid jejunal small bowel loops with mild wall thickening suggesting an enteritis process. 4. Pulmonary artery is unremarkable. 5. Cardiac contour, size, and coronary arteries are unremarkable. Dictated and Authenticated by: Yinka Nolasco MD. Ordering:ARNIE Navarrete MD
[2022-10-27] MEDS: LORazepam 2 MG/ML VIAL 1 MG IVP (21:42)
--- NOTE | 2022-10-27 21:46 | NUR.NOTE ---
Nursing Note: pt resting, po meds given, pt more comfortable with nausea, states the pain is still there but has decreased, sl nitro given
[2022-10-27 22:56] LABS: Troponin I 283 ng/L (<or=60)
--- NOTE | 2022-10-27 23:00 | RT.EKG_ITS ---
APPROVED REPORT Exam: Resting ECG Reason for Exam: cp #2 Patient Location: E HR:58 bpm ECG Measurements Heart Rate 58 AXIS WI 132 P 66 QRSd 109 QRS 79 QT 456 T 37 QTc 450 Conclusion Sinus bradycardia...rate< 60. Sinus. Normal axis. No STEMI. I have reviewed and interpreted ECG and agree with software generated interpretation.
[2022-10-28] VITALS (52 sets, daily range): BP systolic 81–158; BP diastolic 42–74; PULSE 45–107; RESP 12–27; TEMP 36.5–37.1; O2SAT 96–100
--- NOTE | 2022-10-28 01:33 | NUR.NOTE ---
Nursing Note:Pt resting, more comfortable, 3rd trop drawn and sent
[2022-10-28 01:52] LABS: Troponin I 453 ng/L (<or=60)
[2022-10-28] MEDS: Normal Saline 250 ML IV ×2 (02:11→02:50)
--- NOTE | 2022-10-28 02:15 | RT.EKG_ITS ---
APPROVED REPORT Exam: Resting ECG Reason for Exam: chest pain Patient Location: E HR:60 bpm ECG Measurements Heart Rate 60 AXIS FL 153 P 66 QRSd 99 QRS 75 QT 462 T 73 QTc 462 Conclusion Sinus rhythm...normal P axis, V-rate 60- 99. Sinus. Normal axis. No STEMI. I have reviewed and interpreted ECG and agree with software generated interpretation.
--- NOTE | 2022-10-28 02:24 | NUR.NOTE ---
Nursing Note: pt states she had a AAA this past summer and that it did not require any surgery. The pt currently stated that the pain felt the same as it did then. The pt is agreeable with transfer to another hospital for higher level of care. BP remains low after 250ml bolus of NS, 2nd 250ml bolus infusing. weight 66.2kg per bed scale
[2022-10-28] MEDS: Normal Saline 500 ML IV (02:51)
--- NOTE | 2022-10-28 02:52 | NUR.NOTE ---
Nursing Note: pt received 2nd 250ml bolus, BP still low. Pt receiving 500ml NS bolus (3rd liter NS)
--- NOTE | 2022-10-28 02:57 | NUR.NOTE ---
Nursing Note: Pt requesting to have DCF worker called and notified that she will be transferred to [facility]. The pt has a four year old child named Bhavik Clemens that was placed in DCF custody while the pt is hospitalized
--- NOTE | 2022-10-28 03:03 | NUR.NOTE ---
Nursing Note: [facility] case [id number]
--- NOTE | 2022-10-28 03:27 | NUR.NOTE ---
Nursing Note:report called to [facility] and spoke with Reed JOE, report given. [id number] DCF made aware the pt will be transferred to [place]
[2022-10-28] MEDS: Normal Saline 1,000 ML 125 ML IV (03:39)
--- NOTE | 2022-10-28 06:26 | NUR.NOTE ---
Pt left watch here.Nursing Note:
--- NOTE | 2022-11-01 11:40 | NUR.NOTE ---
Nursing Note: Patient called stating that her mother Beatrice was coming in to fish bait picker her watch. I gave the watch to Beatrice when she arrived.
== END 2022-10-28 04:16 | disposition short-term general hospital (02) ==
PROVIDERS: Nurse Practitioner Family; Emergency Provider Physician Assistant
DX: R07.89 Other chest pain (principal); Q79.60 Ehlers-Danlos syndrome, unspecified; R77.8 Other specified abnormalities of plasma proteins; I95.9 Hypotension, unspecified; D72.829 Elevated white blood cell count, unspecified; N83.202 Unspecified ovarian cyst, left side; R19.7 Diarrhea, unspecified; R11.2 Nausea with vomiting, unspecified; R68.83 Chills (without fever); Z86.79 Personal history of other diseases of the circulatory system; Z20.822 Contact with and (suspected) exposure to COVID-19
CPT/HCPCS: 71275; 80053; 80307; 81025; 83690; 87637; 93005; 96361; 96374; 96375; 99291; 74174; 74177; 81003; 81015; 83735; 84484; 85025; 93010; J0131; J0780; J1885; J2060; J2405; J3490

== ENCOUNTER 2023-01-14 11:28 | Emergency (ER) | payer MEDICAID, SELFPAY ==
--- NOTE | 2023-01-14 11:45 | DI.CT_ITS ---
Exam(s) CT THORAX ABD/PEL CTA EXAM: CT THORAX ABD/PEL CTA CLINICAL HISTORY: Piyush-Danlos, hx dissection, left abd pain. TECHNIQUE: Imaging Protocol: Axial CT angiography was performed with multi-slice acquisition and m ulti-planar and/or 3D reconstructions. CONTRAST MATERIAL: Intravenous: Omnipaque 350 Contrast volume:65mL Oral: No COMPARISON: CT CT THORAX ABD/PEL CTA from 10/27/2022 FINDINGS: ABDOMEN AND PELVIS: Abdomen: Celiac axis/mesenteric arteries: No evidence of occlusion or significant stenosis. Renal Arteries: No evidence of occlusion or significant stenosis. There is a single renal artery perf using each kidney. Aorta: No evidence of occlusion or significant stenosis. No aneurysm or dissection. Minimal atherosc lerosis. Pelvis: Iliac Arteries: No evidence of occlusion or significant stenosis. Common Femoral Arteries: No evidence of occlusion or significant stenosis. ABDOMEN: Lung bases: The visualized pulmonary arteries are unremarkable. Liver: Normal density. No measurable mass. Portal, Superior Mesenteric, and Splenic Veins: Unremarkable. Gallbladder and Biliary Tract: No radiodense calculus or dilation. Pancreas: Normal density, no abnormal calcifications or inflammatory process. Spleen: Normal. Adrenals: No masses seen. Kidneys: Normal size, contour and axis. No radiodense stones or obstructive uropathy. No masses seen. Bowel: No obstruction or bowel wall thickening. No evidence of appendicitis. Peritoneal Cavity: No significant ascites, collection or mesenteric inflammatory response. No free ai r. Lymph Nodes: Within normal limits. Bones: Within normal limits for the patient's age. Soft Tissues: Unremarkable. PELVIS: Bladder: Symmetric distention, no gross wall thickening. Reproductive Organs: Unremarkable as visualized. Lymph Nodes: Within normal limits. Bones: Within normal limits. IMPRESSION: 1. No evidence of abdominal aortic aneurysm or dissection. 2. No acute abdominal or pelvic process. RADIATION DOSE DELIVERED: 432.17mGy.cm Total DLP DATA REPOSITORY: All CT scans at this facility are submitted to the National Radiology Data Registry (NRDR) Dose Index Registry (DIR) with the [employer] (ACR). RADIATION OPTIMIZATION: All CT scans at this facility use at least one of these dose optimization te chniques: automated exposure control; mA and/or kV adjustment per patient size (includes targeted exa ms where dose is matched to clinical indication); or iterative reconstruction.
--- NOTE | 2023-01-14 11:45 | DI.CT_ITS ---
Exam(s) CT BRAIN NECK CTA EXAM: CT BRAIN NECK CTA CLINICAL HISTORY: hx Piyush-Danlos,dissec,SCAD,now GAN R eye dbl vs. TECHNIQUE: Imaging Protocol: Axial CT angiography was performed with multi-slice acquisition and mu lti-planar and/or 3D reconstructions. CONTRAST MATERIAL: Intravenous: Omnipaque 350 contrast volume:T5 mL COMPARISON: CT CT THORAX ABD/PEL CTA from 01/14/2023 FINDINGS: CT Head W/O and W: Ventricles and Extra axial spaces: Normal in size and morphology for the patient's age. Hemorrhage: None. Cerebral parenchyma: Normal. Midline shift: None. Brainstem/Cerebellum: Normal. Calvarium: Normal. Visualized Paranasal sinuses/Mastoids: There is a small mucous retention cyst or polyp in the right m axillary sinus. The remaining visualized paranasal sinuses are clear. Soft Tissues: Unremarkable. Enhancement: Unremarkable. CTA Neck W: Common Carotid: Right: No dissection, occlusion or significant stenosis. Left: No dissection, occlusion or significant stenosis. External Carotid: Right: No occlusion or significant stenosis. Left: No occlusion or significant stenosis. Internal Carotid: Right: No dissection, occlusion or significant stenosis. Left: No dissection, occlusion or significant stenosis. Vertebral Artery: Right: No dissection, occlusion or significant stenosis. Left: No dissection, occlusion or significant stenosis. Lung Apices: Normal. Bones: Within normal limits for the patient's age. Soft Tissues: Normal. Thyroid gland: Unremarkable. CTA Brain W: Internal Carotid Arteries: There is no aneurysm, occlusion or significant stenosis. Anterior Cerebral Arteries: Right: No aneurysm, occlusion or significant stenosis. Left: No aneurysm, occlusion or significant stenosis. Middle Cerebral Arteries: Right: No aneurysm, occlusion or significant stenosis. Left: No aneurysm, occlusion or significant stenosis. Posterior Cerebral Arteries: Right: No aneurysm, occlusion or significant stenosis. Left: No aneurysm, occlusion or significant stenosis. Vertebral Arteries: Right: No aneurysm, occlusion or significant stenosis. Left: No aneurysm, occlusion or significant stenosis. Basilar Artery: No aneurysm, occlusion or significant stenosis. IMPRESSION: 1. No large vessel occlusion or significant stenosis on the CT angiography of the head. 2. No acute intracranial process. 3. No occlusion or significant stenosis on the CT angiography of the neck. RADIATION DOSE DELIVERED: 1,558.25mGy.cm Total DLP DATA REPOSITORY: All CT scans at this facility are submitted to the National Radiology Data Registry (NRDR) Dose Index Registry (DIR) with the [employer] (ACR). RADIATION OPTIMIZATION: All CT scans at this facility use at least one of these dose optimization te chniques: automated exposure control; mA and/or kV adjustment per patient size (includes targeted exa ms where dose is matched to clinical indication); or iterative reconstruction.
[2023-01-14 11:47] VITALS: BP 114/72; PULSE 59; RESP 18; O2SAT 99
--- NOTE | 2023-01-14 12:00 | RT.EKG_ITS ---
APPROVED REPORT Exam: Resting ECG Reason for Exam: chest pain Patient Location: E HR:58 bpm ECG Measurements Heart Rate 58 AXIS OR 138 P 73 QRSd 93 QRS 84 QT 409 T 0 QTc 401 Conclusion Sinus bradycardia...rate< 60 Physician: no stemi
--- NOTE | 2023-01-14 12:07 | ED.GENADUL_ITS ---
Discharge Plan Disposition Patient Disposition: Home Condition: Good Discharge Details Clinical Impression: Dizziness, Abdominal pain Primary Care Provider: Kari,Local ED Provider: Bobby Tim Home Meds and New Rx's Prescriptions: New meclizine 25 mg tablet 25 mg PO BID PRNQty: 20 0RF No Action lorazepam 0.5 mg Tablet 0.5 mg PO TID PRN metoprolol succinate 25 mg Tablet Extended Release 24 Hr 25 mg PO BID Discharge Instructions Instructions: Abdominal Pain (ED), Dizziness (ED) Additional Instructions: At this time the CAT scan of your brain, neck, chest and abdomen show no significant abnormalities. There is no evidence of aneurysms or dissections. Your laboratory work-up is notably stable and reassuring. Your heart markers are negative for any evidence of heart attack. Your urine shows no signs of infection. At this time I suspect that a component of your dizziness is from peripheral vertigo. Please take the meclizine as directed. It is been sent to your pharmacy on file. Please drink plenty fluids and stay well-hydrated. In regards to your abdominal pain, I suspect this is from irritation in your stomach. I would avoid any Motrin, I would stick with a bland diet of rice, mashed potatoes, oatmeal and yogurt. Please avoid any spicy foods, greasy foods, tomato-based products or mint products. Please take Tums as needed over the next few days. If you notice any worsening of your symptoms, or any new symptoms such as vomiting, diarrhea, fever, chills, shortness of breath, chest pain, numbness, weakness, or fainting , please return immediately to the emergency department for reevaluation. Please follow up with your primary care provider as soon as possible for reassessment and reevaluation. As always, it was a pleasure participating in your medical care today. 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 Patient states that yesterday she developed mild abdominal pain in the left upper quadrant with vomiting. It feels pulsatile in her left abdomen. This morning she woke up and she had a headache and felt dizzy as well. This was around 7 or 8 AM, less than 6 hours ago. It was not the worst headache of her life. It is located in the front of her head. She feels dizzy whenever she moves her head or looks in different directions. She was nauseous and did have some vomiting but she attributed this to her abdominal pain. She denies any trauma or falls. She does admit to a mild room spinning sensation. Physical exam demonstrates a well-appearing female, she does have horizontal nystagmus that is bidirectional but fatiguing. No other neurologic deficits. She does demonstrate atypical you need a lateral right eye diplopia only when the left eye is covered. Otherwise there is no double vision in the left eye, and no double vision when both eyes are functional. She otherwise demonstrates normal assessment. No meningeal signs. Blood pressure stable. Due to the patient's history I certainly am concerned for dissection in a cranially or intra-abdominal A/thoracically, however gastric ulcer, migraine headache, are certainly also on the differential. Symptoms appear inconsistent with meningitis. Symptom onset is within the last 6 hours, and so I do feel that CT/CTA is a reasonable path for further neurologic assessment at this time. We will monitor closely and reassess. 3:33 PM Reassessment patient is feeling much better. Her dizziness has notably improved/nearly resolved. Her headache is resolved, and her stomach pain is notably improved and she states that she is now hungry. Laboratory work-up has returned normal, electrolytes normal, troponin normal. CT scan shows no significant acute process, no aneurysm or dissection per virtual radiology. No evidence of stroke or occlusion. On reassessment patient is feeling much b christiano, and shows no signs of ataxia, or evidence of cerebellar stroke clinically on exam. Will recommend meclizine for home use for peripheral vertigo component, as well as bland diet for suspected irritated stomach. Patient otherwise stable and appropriate for discharge. Symptoms at this time appear clinically inconsistent with scad, dissection, aneurysm, stroke, or bleed. I have extensively reviewed the treatment plan and discharge instructions with the patient and their family. I have addressed all patient concerns at this time. The patient and family was made aware of what symptoms to monitor for that would warrant a return to the emergency department. Discussed the plan with the patient and family, they demonstrate verbal understanding and agreement with our assessment and plan at this time. The documentation in this chart was dictated using [employer] dictation software. Please excuse any dictation errors. FINDINGS: VASCULATURE: Pulmonary arteries: Normal. No pulmonary emboli. Aorta: No aortic aneurysm. No aortic dissection. Minimal amount of plaque containing calcification in the infrarenal abdominal aorta Celiac trunk and mesenteric arteries: No occlusion or significant stenosis. Renal arteries: No occlusion or significant stenosis. Right iliac arteries: No occlusion or significant stenosis. Left iliac arteries: No occlusion or significant stenosis. CHEST: Lungs: Unremarkable. No consolidation. No masses. Pleural spaces: Unremarkable. No pneumothorax. No pleural effusion. Heart: Unremarkable. No cardiomegaly. No pericardial effusion. ABDOMEN AND PELVIS: Liver: The liver is enlarged measuring 16 cm in craniocaudal length. It is of decreased attenuation consistent with fatty infiltration. There are no cysts or masses. Gallbladder and bile ducts: Unremarkable. No calcified stones. No ductal dilation. Pancreas: Unremarkable. No mass. No ductal dilation. Spleen: Unremarkable. No splenomegaly. Adrenal glands: Unremarkable. No mass. Kidneys and ureters: Unremarkable. No solid mass. No hydronephrosis. Stomach and bowel: Unremarkable. No obstruction. No mucosal thickening. Appendix: No evidence of appendicitis. Intraperitoneal space: Unremarkable. No free air. No significant fluid collection. Urinary bladder: Unremarkable. No mass. Reproductive: Unremarkable as visualized. Lymph nodes: Unremarkable. No enlarged lymph nodes. Bones/joints: Unremarkable. No acute fracture. Soft tissues: Unremarkable. IMPRESSION: 1. No aortic aneurysm or dissection. 2. Hepatic steatosis. Thank you for allowing us to participate in the care of your patient. Dictated and Authenticated by: Richi Luque MD 01/14/2023 2:58 PM Eastern Time ([place] & [place]) FINDINGS: ANTERIOR CIRCULATION: Right internal carotid artery: Intracranial segment is patent with no significant stenosis or occlusion. No aneurysm. Right middle cerebral artery: No occlusion or significant stenosis. No aneurysm. Right anterior cerebral artery: No occlusion or significant stenosis. No aneurysm. Left internal carotid artery: Intracranial segment is patent with no significant stenosis. No aneurysm. Left middle cerebral artery: No occlusion or significant stenosis. No aneurysm. Left anterior cerebral artery: No occlusion or significant stenosis. No aneurysm. POSTERIOR CIRCULATION: Right vertebral artery: No occlusion or significant stenosis. No aneurysm. Left vertebral artery: No occlusion or significant stenosis. No aneurysm. Basilar artery: No occlusion or significant stenosis. No aneurysm Right posterior cerebral artery: No occlusion or significant stenosis. No aneurysm. Left posterior cerebral artery: No occlusion or significant stenosis. No aneurysm. HEAD: Brain: Normal. No hemorrhage. Unremarkable white matter. No mass effect. Cerebral ventricles: Normal. No ventriculomegaly. Bones/joints: Unremarkable. No acute fracture. Paranasal sinuses: Visualized sinuses are normal. No fluid levels. Mastoid air cells: Visualized mastoids are normal. No mastoid effusion. Soft tissues: Unremarkable. IMPRESSION: No large vessel occlusion. Unremarkable CT head. FINDINGS: Right common carotid artery: No stenosis. No dissection or occlusion. Right internal carotid artery: No stenosis of the extracranial segment. No dissection or occlusion. Right external carotid artery: No occlusion or stenosis of the origin. Left common carotid artery: No stenosis. No dissection or occlusion. Left internal carotid artery: No stenosis of the extracranial segment. No dissection or occlusion. Left external carotid artery: No occlusion or stenosis of the origin. Right vertebral artery: No stenosis. No dissection or occlusion. Left vertebral artery: No stenosis. No dissection or occlusion. Soft tissues: Normal. No significant soft tissue swelling. Bones/joints: No acute fracture. IMPRESSION: No stenosis or occlusion. REFERENCES: NASCET CRITERIA. The degree of stenosis in the cervical segment of the internal carotid artery is based on NASCET criteria. Normal is no stenosis. Mild is less than 50% stenosis. Moderate is 50- 69% stenosis. Severe is 70% to 99% stenosis. Total occlusion is no detectable patent lumen. Thank you for allowing us to participate in the care of your patient. Dictated and Authenticated by: Christiano Mcleod MD 01/14/2023 2:14 PM Eastern Time ([place] & [place]) HPI General Date/Time Provider Initiated Documentation: 01/14/23 11:38 . 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 Patient states that yesterday she developed mild abdominal pain in the left upper quadrant with vomiting. It feels pulsatile in her left abdomen. This morning she woke up and she had a headache and felt dizzy as well. This was around 7 or 8 AM, less than 6 hours ago. It was not the worst headache of her life. It is located in the front of her head. She feels dizzy whenever she moves her head or looks in different directions. She was nauseous and did have some vomiting but she attributed this to her abdominal pain. She denies any trauma or falls. She does admit to a mild room spinning sensation. Related Data Home Medications Medication Instructions Recorded Confirmed lorazepam 0.5 mg tablet 0.5 mg PO TID PRN 10/27/22 01/14/23 metoprolol succinate 25 mg 25 mg PO BID 10/27/22 01/14/23 tablet,extended release 24 hr meclizine 25 mg tablet 25 mg PO BID PRN #20 tabs 01/14/23 Previous Rx's Medication Instructions Recorded meclizine 25 mg tablet 25 mg PO BID PRN #20 tabs 01/14/23 Allergies Allergy/AdvReac Type Severity Reaction Status Date / Time amoxicillin Allergy Severe Other (See Unverified 01/14/23 11:53 Comment) acetaminophen [From Percocet] Allergy Intermediate Hives Unverified 01/14/23 11:53 oxycodone [From Percocet] Allergy Intermediate Hives Unverified 01/14/23 11:53 Penicillins Allergy Intermediate Diarrhea Unverified 01/14/23 11:53 sulfamethoxazole Allergy Intermediate Hives Unverified 01/14/23 11:53 [From Bactrim] trimethoprim [From Bactrim] Allergy Intermediate Hives Unverified 01/14/23 11:53 General Stated Complaint: [facility] SALIMA: 3 Review of Systems All systems reviewed & are unremarkable except as noted in HPI and below PFSH All Active Problems (Updated 01/14/23 @ 15:31 by Bobby Tim DO) Dizziness (Acute) Abdominal pain (Acute) Piyush-Danlos syndrome (Acute) Medical History Migraine headache Social History Smoking/Tobacco Use Status: Never Smoking risk assessment performed?: Yes Alcohol Intake: never Drug use: Occasionally Substance use type: marijuana Do you feel safe at home: Yes Do you feel safe in your relationship?: Yes Exam Narrative Exam Narrative: 1.Const: Well-nourished, Well-developed, appearing stated age 2.Eyes: PERRL, no conjunctival injection, and symmetrical lids. 3.ENT: Atraumatic external nose and ears. Moist MM. Neck: Symmetric, trachea midline, No thyromegaly. Patient demonstrates good movement of cervical neck. There is no nuchal rigidity, no nuchal tenderness. Patient is able to flex the neck without any difficulty or significant pain. Negative Kernig's and Brudzinski sign. 4.CVS: +S1/S2, No murmurs or gallops. Peripheral pulses 2+ and equal in all extremities. Brisk capillary refill in all extremities. 5.RESP: Unlabored respiratory effort. Clear to auscultation bilaterally. No wheezes rales or rhonchi 6.GI: Soft, Nontender/Nondistended, No hepatosplenomegaly. No guarding or rebound. 7.MSK: Normocephalic/Atraumatic, Extremities w/o deformity or ttp No cyanosis or clubbing, Normal movement of all extremities 8.Skin: Warm, Dry. No rashes or lesions. 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 Sensation grossly intact, no focal neurologic deficits. Patient does demonstrate horizontal bidirectional fatigable nystagmus. No vertical or rotatory nystagmus. Test of skew is negative for change or vertical correction. All 6 cardinal planes of vision are fully intact. No evidence of rotatory or vertical nystagmus. The patient demonstrated a normal [id number], good dexterity. There was no evidence of dysdiadochokinesia. Patient was able to ambulate without difficulty. There was no wide-based gait. Romberg testing was normal. Ihqj-[id number] testing was normal. Sensation was intact bilaterally as well as muscle strength bilaterally for all extremities. Patient was able to verbalize butter cup with no slurring, or miss pronunciation. 10.Psych: (AAO) x3. Appropriate mood and affect Course Vital Signs Vital signs: Vital Signs Pulse 59 L 01/14/23 11:47 Respiratory Rate 18 01/14/23 11:47 Blood Pressure 114/72 01/14/23 11:47 Pulse Oximetry 99 01/14/23 11:47 Pulse 59 L 01/14/23 11:47 Respiratory Rate 18 01/14/23 11:47 Respiratory Effort Normal, Non-Labored 01/14/23 11:53 Blood Pressure 114/72 01/14/23 11:47 Blood Pressure Position Sitting 01/14/23 11:47 Pulse Oximetry 99 01/14/23 11:47 Oxygen Delivery Method Room Air 01/14/23 11:47 Oxygen Flow Rate 0 01/14/23 11:47
[2023-01-14 12:36] LABS: Lactate 0.8 mmol/L (0.6-1.4)
[2023-01-14 12:39] LABS: Abs Immature Grans 0.02 10^3/uL (0.0-0.06); Absolute Eosinophil Count 0.18 10^3/uL (0.0-0.7); Absolute Lymphocyte Count 2.07 10^3/uL (1.2-3.4); Absolute Monocyte Count 1.02 10^3/uL (0.1-0.8); Absolute Neutrophil Count 7.34 10^3/uL (1.2-6.7); Basophils % 0.9; Eosinophils % 1.7; HCT 42.7 % (36.0-46.0); HGB 14.1 g/dL (11.2-15.7); Immature Grans % 0.2; Lymphocytes % 19.3; MCH 29.7 pg (27.0-33.0); MCV 90 fL (80-95); MPV 10.7 fL (8.0-11.0); Monocytes % 9.5; Neutrophils % 68.4; Platelet Count 263 10^3/uL (130-400); RBC 4.74 10^6/uL (3.93-5.22); RDW 12.8 % (11.7-14.6); RDW-SD 42.6 fL; WBC 10.73 10^3/uL (4.4-10.8)
[2023-01-14] MEDS: Normal Saline 500 ML IV (12:40)
[2023-01-14] MEDS: Meclizine 25 MG TAB PO (12:42)
[2023-01-14] MEDS: ACETAMINOPHEN 1,000 MG/100 ML BTL 400 MG IVPB (12:43)
[2023-01-14 12:51] LABS: PTT Activated 26.4 sec (21.5-31.9); Prothrombin Time 10.3 sec (9.3-11.0)
[2023-01-14 12:57] LABS: ALT 17 U/L (14-59); AST 14 U/L (15-37); Albumin 4.3 g/dL (3.4-5.0); Alkaline Phosphatase 68 U/L (46-116); Anion Gap 9.2 mmol/L (3-11); BUN 9 mg/dL (7-18); Bilirubin, Total 0.8 mg/dL (0.2-1.0); CO2 23.8 mmol/L (21.0-32.0); CREATININE 0.7 mg/dL (0.55-1.02); Calcium 9.3 mg/dL (8.5-10.1); Chloride 105 mmol/L (98-107); Estimated GFR 108.62 (mL/min/1.73m2); Glucose 94 mg/dL (74-106); Lipase 34 U/L (16-77); Sodium 138 mmol/L (136-145); Troponin I < 50 ng/L (<or=60)
[2023-01-14 13:31] LABS: Bilirubin Negative (Negative); Blood Negative (Negative); Clarity Clear (Clear); Glucose Negative (Negative); Ketones Negative (Negative); Leukocyte Esterase Negative (Negative); Nitrite Negative (Negative); Urobilinogen 0.2 mg/dL (Up to 0.2); pH 5.5 (5-8)
[2023-01-14] MEDS: Omnipaque 350 MG/ML 100 ML BTL IJ (13:51)
[2023-01-14] MEDS: Omnipaque 350 MG/ML 50 ML BTL IJ (13:51)
[2023-01-14] MEDS: Normal Saline - Diluent 50 ML VIAL IJ (13:52)
--- NOTE | 2023-01-14 14:15 | DI.VRAD_ITS ---
PROCEDURE INFORMATION: Exam: CTA Head Without And With Contrast, Arteriography Exam date and time: 01/14/2023 1:26 PM Age: 47 years old Clinical indication: Pain; Headache TECHNIQUE: Imaging protocol: Computed tomographic angiography of the head without and with contrast. Exam focused on the arteries. 3D rendering (Not supervised by radiologist): MIP and/or 3D reconstructed images were created by the technologist. COMPARISON: No relevant prior studies available. FINDINGS: ANTERIOR CIRCULATION: Right internal carotid artery: Intracranial segment is patent with no significant stenosis or occlusion. No aneurysm. Right middle cerebral artery: No occlusion or significant stenosis. No aneurysm. Right anterior cerebral artery: No occlusion or significant stenosis. No aneurysm. Left internal carotid artery: Intracranial segment is patent with no significant stenosis. No aneurysm. Left middle cerebral artery: No occlusion or significant stenosis. No aneurysm. Left anterior cerebral artery: No occlusion or significant stenosis. No aneurysm. POSTERIOR CIRCULATION: Right vertebral artery: No occlusion or significant stenosis. No aneurysm. Left vertebral artery: No occlusion or significant stenosis. No aneurysm. Basilar artery: No occlusion or significant stenosis. No aneurysm. Right posterior cerebral artery: No occlusion or significant stenosis. No aneurysm. Left posterior cerebral artery: No occlusion or significant stenosis. No aneurysm. HEAD: Brain: Normal. No hemorrhage. Unremarkable white matter. No mass effect. Cerebral ventricles: Normal. No ventriculomegaly. Bones/joints: Unremarkable. No acute fracture. Paranasal sinuses: Visualized sinuses are normal. No fluid levels. Mastoid air cells: Visualized mastoids are normal. No mastoid effusion. Soft tissues: Unremarkable. IMPRESSION: No large vessel occlusion. Unremarkable CT head. PROCEDURE INFORMATION: Exam: CTA Neck Without And With Contrast Exam date and time: 01/14/2023 1:26 PM Age: 47 years old Clinical indication: Pain; Headache TECHNIQUE: Imaging protocol: Computed tomographic angiography of the neck without and with contrast. 3D rendering (Not supervised by radiologist): MIP and/or 3D reconstructed images were created by the technologist. COMPARISON: CT THORAX ABD/PEL CTA 14/01/2023 13:06 FINDINGS: Right common carotid artery: No stenosis. No dissection or occlusion. Right internal carotid artery: No stenosis of the extracranial segment. No dissection or occlusion. Right external carotid artery: No occlusion or stenosis of the origin. Left common carotid artery: No stenosis. No dissection or occlusion. Left internal carotid artery: No stenosis of the extracranial segment. No dissection or occlusion. Left external carotid artery: No occlusion or stenosis of the origin. Right vertebral artery: No stenosis. No dissection or occlusion. Left vertebral artery: No stenosis. No dissection or occlusion. Soft tissues: Normal. No significant soft tissue swelling. Bones/joints: No acute fracture. IMPRESSION: No stenosis or occlusion. REFERENCES: NASCET CRITERIA. The degree of stenosis in the cervical segment of the internal carotid artery is based on NASCET criteria. Normal is no stenosis. Mild is less than 50% stenosis. Moderate is 50-69% stenosis. Severe is 70% to 99% stenosis. Total occlusion is no detectable patent lumen. Dictated and Authenticated by: Christiano Mcleod MD. Ordering:CICI Rosales MD
--- NOTE | 2023-01-14 14:59 | DI.VRAD_ITS ---
PROCEDURE INFORMATION: Exam: CTA Chest With Contrast CTA Abdomen and Pelvis With Contrast Exam date and time: 01/14/2023 1:37 PM Age: 47 years old Clinical indication: Other: Elhers-danlos, HX dissection; Other: Pain; Additional info: 65 ml contrast, post cta brain inj. TECHNIQUE: Imaging protocol: Computed tomographic angiography of the chest with contrast. Computed tomographic angiography of the abdomen and pelvis with contrast. 3D rendering (Not supervised by radiologist): MIP and/or 3D reconstructed images were created by the technologist. COMPARISON: CT THORAX ABD/PEL CTA 10/27/2022 8:00 PM FINDINGS: VASCULATURE: Pulmonary arteries: Normal. No pulmonary emboli. Aorta: No aortic aneurysm. No aortic dissection. Minimal amount of plaque containing calcification in the infrarenal abdominal aorta Celiac trunk and mesenteric arteries: No occlusion or significant stenosis. Renal arteries: No occlusion or significant stenosis. Right iliac arteries: No occlusion or significant stenosis. Left iliac arteries: No occlusion or significant stenosis. CHEST: Lungs: Unremarkable. No consolidation. No masses. Pleural spaces: Unremarkable. No pneumothorax. No pleural effusion. Heart: Unremarkable. No cardiomegaly. No pericardial effusion. ABDOMEN AND PELVIS: Liver: The liver is enlarged measuring 16 cm in craniocaudal length. It is of decreased attenuation consistent with fatty infiltration. There are no cysts or masses. Gallbladder and bile ducts: Unremarkable. No calcified stones. No ductal dilation. Pancreas: Unremarkable. No mass. No ductal dilation. Spleen: Unremarkable. No splenomegaly. Adrenal glands: Unremarkable. No mass. Kidneys and ureters: Unremarkable. No solid mass. No hydronephrosis. Stomach and bowel: Unremarkable. No obstruction. No mucosal thickening. Appendix: No evidence of appendicitis. Intraperitoneal space: Unremarkable. No free air. No significant fluid collection. Urinary bladder: Unremarkable. No mass. Reproductive: Unremarkable as visualized. Lymph nodes: Unremarkable. No enlarged lymph nodes. Bones/joints: Unremarkable. No acute fracture. Soft tissues: Unremarkable. IMPRESSION: 1. No aortic aneurysm or dissection. 2. Hepatic steatosis. Dictated and Authenticated by: Richi Luque MD. Ordering:CICI Rosales MD
== END 2023-01-14 15:51 | disposition home or self-care (01) ==
PROVIDERS: Emergency Provider Student in an Organized Health Care Education/Training Program
DX: R10.12 Left upper quadrant pain (principal); R42 Dizziness and giddiness; R51.9 Headache, unspecified; R07.9 Chest pain, unspecified; I25.2 Old myocardial infarction; R11.2 Nausea with vomiting, unspecified; Q79.60 Ehlers-Danlos syndrome, unspecified; H55.00 Unspecified nystagmus
CPT/HCPCS: 70496; 70498; 71275; 80053; 83690; 93005; 96365; 99285; 74174; 81003; 83605; 84484; 85025; 85610; 85730; 93010; 99284; J0131; J3490; Q9967

== ENCOUNTER 2023-03-28 15:50 | Outpatient (REF) | payer MEDICAID, SELFPAY ==
[2023-03-28 21:21] LABS: Abs Immature Grans 0.02 10^3/uL (0.0-0.06); Absolute Eosinophil Count 0.19 10^3/uL (0.0-0.7); Absolute Lymphocyte Count 1.99 10^3/uL (1.2-3.4); Absolute Monocyte Count 0.54 10^3/uL (0.1-0.8); Absolute Neutrophil Count 3.64 10^3/uL (1.2-6.7); Basophils % 1.5; Eosinophils % 2.9; HCT 40.6 % (36.0-46.0); HGB 13.4 g/dL (11.2-15.7); Immature Grans % 0.3; Lymphocytes % 30.7; MCH 30.7 pg (27.0-33.0); MCV 93 fL (80-95); MPV 11.5 fL (8.0-11.0); Monocytes % 8.3; Neutrophils % 56.3; Platelet Count 316 10^3/uL (130-400); RBC 4.37 10^6/uL (3.93-5.22); RDW 13.3 % (11.7-14.6); RDW-SD 45.5 fL; WBC 6.48 10^3/uL (4.4-10.8)
[2023-03-30 09:38] LABS: Lyme Ab w Rflx to Lyme Confirm Negative (Negative)
[2023-04-03 11:56] LABS: Anaplasma phagocytophilum Negative (Negative); B. miyamotoi PCR Negative (Negative); Babesia divergens/MO-1 Negative (Negative); Babesia duncani Negative (Negative); Babesia microti Negative (Negative); Ehrlichia chaffeensis Negative (Negative); Ehrlichia ewingii/canis Negative (Negative); Ehrlichia muris eauclairensis Negative (Negative)
== END 2023-03-28 15:51 | disposition home or self-care (01) ==
LOC: LBN 15:50
PROVIDERS: Visit Provider Physician Assistant
DX: R59.0 Localized enlarged lymph nodes (principal); N64.4 Mastodynia; R53.83 Other fatigue
CPT/HCPCS: 87798; 85025; 86618